=== PATIENT | male | born 1985 | race African-American/Black ===

== ENCOUNTER 2018-03-12 09:47 | Emergency (ER) | payer SELFPAY ==
[~2018-03-12] VITALS: Ht 167.6 cm; Wt 68.0 kg
[2018-03-12 10:09] VITALS: BP 131/88
[2018-03-12] MEDS ORDERED: PSEU60TA PO (10:17)
[2018-03-12] MEDS ORDERED: TRAM50TA PO (10:17)
[2018-03-12] MEDS ORDERED: AMOX875T PO (10:17)
--- NOTE | 2018-03-12 10:17 | PHYS DOC ---
Adult General Chief Complaint Chief Complaint: EARACHE/EAR PAIN [facility] HPI Patient is a 32 year old male who presents with a sharp constant bilateral ear pain worse to the right ear, rated at 8 out of 10 that began 2 weeks ago. Patient states he also feels muffled in his ears. Patient denies any fever coughing or congestion. He states he has tried cleaning his ears with no relief to his symptoms. Review of Systems Review of Systems Constitutional: Denies fever or chills [] Eyes: Denies change in visual acuity, redness, or eye pain [] HENT: Reports bilateral ear pain. Denies nasal congestion or sore throat [] Respiratory: Denies cough or shortness of breath [] Cardiovascular: No additional information not addressed in HPI [] GI: Denies abdominal pain, nausea, vomiting, bloody stools or diarrhea [] : Denies dysuria or hematuria [] Musculoskeletal: Denies back pain or joint pain [] Integument: Denies rash or skin lesions [] Neurologic: Denies headache, focal weakness or sensory changes [] All other systems were reviewed and found to be within normal limits, except as documented in this note. Allergies Allergies Allergies Coded Allergies Type Severity Reaction Last Updated Verified No Known Drug Allergies 03/12/18 No Physical Exam Physical Exam Constitutional: Well developed, well nourished, no acute distress, non-toxic appearance. [] HENT: Normocephalic, atraumatic, bilateral external ears normal, oropharynx moist, no oral exudates, nose normal. [] Bilateral TM are moderately injected right worse than left with small amount of cloudy fluid in the right Eyes: PERRLA, EOMI, conjunctiva normal, no discharge. [] Neck: Normal range of motion, no tenderness, supple, no stridor. [] Cardiovascular:Heart rate regular rhythm, no murmur [] Lungs & Thorax: Bilateral breath sounds clear to auscultation [] Abdomen: Bowel sounds normal, soft, no tenderness, no masses, no pulsatile masses. [] Skin: Warm, dry, no erythema, no rash. [] Back: No tenderness, no CVA tenderness. [] Extremities: No tenderness, no cyanosis, no clubbing, ROM intact, no edema. [] Neurologic: Alert and oriented X 3, normal motor function, normal sensory function, no focal deficits noted. [] Psychologic: Affect normal, judgement normal, mood normal. [] Current Patient Data Vital Signs Vital Signs Date Time Temp Pulse Resp B/P (MAP) Pulse Ox O2 Delivery O2 Flow Rate FiO2 03/12/18 10:09 98.4 99 18 131/88 (102) 99 Room Air 98.4 EKG EKG [] Radiology/Procedures Radiology/Procedures [] Course & Med Decision Making Course & Med Decision Making Pertinent Labs and Imaging studies reviewed. (See chart for details) Patient has bilateral otitis media. He was discharged with amoxicillin for 10 days. Prescription for tramadol as needed for pain. Also pseudoephedrine recommended. Follow-up with ENT provided in 2 weeks if symptoms persist. Staff Physician Addendum: I was working in the ER during the course of this patient's visit. I was available for consultation as needed, but I was not directly involved in the care of this patient. Dragon Disclaimer Dragon Disclaimer This electronic medical record was generated, in whole or in part, using a voice recognition dictation system. Departure Departure Impression: Primary Impression: Otitis media Disposition: 01 HOME, SELF-CARE Condition: STABLE Referrals: NO PCP (PCP) MARILYN YU MD follow up in 2 weeks Patient Instructions: Otitis Media, Adult, [id number] Additional Instructions: You have ear infection. Take the prescribed medications as ordered. Follow-up with the provided ENT specialist in 2 weeks if symptoms persist. Scripts Pseudoephedrine Hcl (PSEUDOEPHEDRINE HCL) 60 Mg Tablet 60 MG PO BID, #30 TAB Prov: RODRÍGUEZKELL SILVA PATIENT ADMITTING CLERK 03/12/18 Amoxicillin (AMOXICILLIN) 875 Mg Tablet 1 TAB PO BID, #20 TAB Prov: KELL APPLE PATIENT ADMITTING CLERK 03/12/18 Tramadol Hcl (TRAMADOL HCL) 50 Mg Tablet 50 MG PO Q6HRS PRN for PAIN, #30 TAB Prov: RODRÍGUEZJORJEKELL Shea PATIENT ADMITTING CLERK 03/12/18 Problem Qualifiers Primary Impression: Otitis media Otitis media type: other nonsuppurative Chronicity: acute Laterality: bilateral Recurrence: not specified as recurrent Qualified Codes: H65.193 - Other acute nonsuppurative otitis media, bilateral AMBIKAKELL KONG Mar 12, 2018 10:17 JENIFER TAYLOR MD Mar 12, 2018 11:33
== END 2018-03-12 10:36 | disposition home or self-care (01) ==
LOC: ER 09:47
DX: H66.93 Otitis media, unspecified, bilateral (principal)
CPT/HCPCS: 99283